=== PATIENT | female | born 1990 | race African-American/Black ===

== ENCOUNTER 2016-05-18 15:47 | Emergency (ER) | payer OTHER ==
[~2016-05-18] VITALS: Ht 167.6 cm; Wt 74.8 kg
[2016-05-18] MEDS ORDERED: IV NS 0.9% 1,000 ML ONE (17:22)
[2016-05-18] MEDS ORDERED: IV SET PRIMARY 1 EA INFUS.SET MC ONE (17:22)
[2016-05-18] MEDS ORDERED: IV NS 0.9% 500 ML BAG IV ONE (17:30)
[2016-05-18] MEDS ORDERED: IV NS 0.9% 1,000 ML BAG IV ONE (17:30)
[2016-05-18 17:45] LABS: ANION GAP 12 (5-14); BASOPHILS # (AUTO) 0.1 /CMM (0.0-0.2); CALCIUM, SERUM 8.4 mg/dL (8.5-10.1); CARBON DIOXIDE 29 mmol/L (21-32); CHLORIDE 107 mmol/L (98-107); CREATININE 0.8 mg/dL (0.6-1.3); DIFF TOTAL % 100 %; EOSINOPHILS # (AUTO) 0.1 /CMM (0.0-0.7); EOSINOPHILS % (AUTO) 0.5 % (0.0-6.0); GFR 104 mL/min (>60); GLUCOSE 91 mg/dL (74-106); HEMATOCRIT 38 % (33-45); HEMOGLOBIN 12.7 g/dL (11.5-14.8); LYMPHOCYTES # (AUTO) 1.7 /CMM (0.8-4.8); LYMPHOCYTES % (AUTO) 14.4 % (20.0-44.0); MEAN CORPUSCULAR HEMOGLOBIN 33 PG (26.0-33.0); MEAN CORPUSCULAR HGB CONC 33 g/dl (31.0-36.0); MEAN CORPUSCULAR VOLUME 99 fL (82-100); MONOCYTES # (AUTO) 0.3 /CMM (0.1-1.30); MONOCYTES % (AUTO) 2.8 % (2.0-12.0); NEUTROPHILS # (AUTO) 9.4 /CMM (1.8-8.9); NEUTROPHILS % (AUTO) 81.3 % (43.0-81.0); PLATELET COUNT (AUTO) 284 /CMM (150-450); POTASSIUM 4.2 mmol/L (3.5-5.1); RED BLOOD CELL COUNT(AUTO) 3.85 MIL/uL (4.0-5.2); SODIUM SERUM 143 mmol/L (136-145); UREA NITROGEN, BLOOD 7 mg/dL (7-18); WHITE BLOOD COUNT (AUTO) 11.6 K/uL (4.3-11.0)
[2016-05-18 17:54] LABS: TROPONIN I < 0.017 ng/mL (0.00-0.056)
[2016-05-18 19:24] VITALS: BP 115/64
== END 2016-05-18 19:26 | disposition home or self-care (01) ==
LOC: ER 15:49
DX: R55 Syncope and collapse (principal)
CPT/HCPCS: 36415; 71010-TC; 80048-TC; 84484-TC; 84703-TC; 85025-TC; A4606; J7030; Z7610